=== PATIENT | male | born 1980 | race Caucasian/White ===

== ENCOUNTER → 2016-07-23 | Outpatient (CLI) | payer MEDICAID, OTHER ==
[~2016-07-23] MED LIST: IOHEXOL 350 MG/ML 100ML IJ ONE
[2016-07-23 09:15] VITALS: BP 145/104
[2016-07-23 10:00] VITALS: BP 135/94
== END | disposition home or self-care (01) ==
LOC: Rad HDHVI 08:13
PROVIDERS: ATTEND Internal Medicine Cardiovascular Disease
DX: I26.99 Other pulmonary embolism without acute cor pulmonale (principal); I10 Essential (primary) hypertension; N28.1 Cyst of kidney, acquired; G45.8 Other transient cerebral ischemic attacks and related syndromes; R22.43 Localized swelling, mass and lump, lower limb, bilateral; R06.02 Shortness of breath; J45.998 Other asthma
CPT/HCPCS: 71275; 93306; G0463; Q9967; 96374

== ENCOUNTER → 2017-03-21 | Outpatient (CLI) | payer MEDICAID | END | disposition home or self-care (01) | LOC: Rad HDHVI 07:45 | PROVIDERS: ATTEND Internal Medicine Cardiovascular Disease | DX: I50.33 Acute on chronic diastolic (congestive) heart failure (principal); I10 Essential (primary) hypertension; E78.5 Hyperlipidemia, unspecified | CPT/HCPCS: 93306 ==